=== PATIENT | female | born 1965 | race Caucasian/White ===

== ENCOUNTER → 2024-02-13 15:08 | Outpatient (REF) | payer OTHER, SELFPAY | LOC: HWRAD 15:08 | PROVIDERS: ATTENDING PHYSICIAN Student in an Organized Health Care Education/Training Program; FAMILY PHYSICIAN Internal Medicine | DX: M25.562 Pain in left knee (principal) | CPT/HCPCS: 73700 ==

== ENCOUNTER → 2024-04-28 11:35 | Outpatient (REF) | payer OTHER, SELFPAY | LOC: HWRAD 11:35 | PROVIDERS: ATTENDING PHYSICIAN Obstetrics & Gynecology; FAMILY PHYSICIAN Internal Medicine | DX: E28.39 Other primary ovarian failure (principal) | CPT/HCPCS: 77080 ==

== ENCOUNTER → 2024-06-15 15:51 | Outpatient (REF) | payer OTHER, SELFPAY | LOC: HWWDC 15:51 | PROVIDERS: ATTENDING PHYSICIAN Obstetrics & Gynecology Gynecology; FAMILY PHYSICIAN Internal Medicine | DX: Z12.31 Encounter for screening mammogram for malignant neoplasm of breast (principal) | CPT/HCPCS: 77063; 77067 ==

== ENCOUNTER 2024-08-22 10:12 | Emergency (ER) | payer OTHER, SELFPAY ==
[2024-08-22 10:17] VITALS: BP 123/86
--- NOTE | 2024-08-22 10:52 | ED.GENMED ---
History of Present Illness
General
Chief Complaint: Weakness
Source: patient
Exam Limitations: none
Time Seen by Provider: 08/22/24 10:35
Nursing documentation reviewed up to this point in time: agreed with
History of Present Illness
History of Present Illness:
59-year-old female with a past medical history of CHF, pacemaker in place, diabetes, asthma who presents emergency department today with concerns of shortness of breath for the past 2 weeks. Patient also notes generalized weakness. Patient states
that she noted a lot of shortness of breath with ambulating and went to see her seniour insight manager Dr. Amaya who did pacemaker eval and they noted that it showed that her fluid balance was off. She then saw her seniour insight manager 5 days ago and her lasix was
increased to 40 mg BID. She feels like this has not helped her symptoms. She also notes some pain in her right shoulder that started today, patient states that she sleeps on her right side and believes this to be the cause of her symptoms. Patient
also reports right sided sternal pain but she states that she always has this. Patient denies any fevers or chills, abdominal pain, diarrhea or constipation, nausea or vomiting, cough or flulike symptoms. Patient states that Dr. Amaya scheduled
her for an ECHO in August. She denies swelling in her legs. She feels like her face and abdomen have been increasingly puffy recently. She denies any recent long distance travel, recent surgeries, recent hospitalizations. She does not take a blood
thinner.
Past History
Past History
ED Past Medical History: GERD, HTN, IDDM, NIDDM and Other (cardiomyopathy 2011, EF 45% in 2015); Negative Asthma or CAD
ED Past Surgical History: Cholecystectomy and
Patient has exhibited threatening behavior?: No
Social History
Tobacco: Non-smoker
Alcohol: None
Drug: None
Personal:
Living: with family
Employment: Employed ([employer])
Family History
Family History: Other (CVA aunt age 80)
Review of Systems
Review of Systems
All Other Systems: ROS reviewed and negative except as documented in HPI and ROS
Phy Exam
Physical Exam
Physical Exam:
General: Patient is well appearing and in no acute distress; non-toxic
Skin: Warm and dry, no rashes or lesions
Head: Normocephalic, atraumatic
Eyes: Sclera non-icteric. EOMs intact.
Cardiac: Regular rate and rhythm, no murmurs
Peripheral Vascular: No lower extremity swelling or edema
Pulm: Normal respiratory effort, no wheezes, rales, or rhonchi
Abdomen: No abdominal tenderness to palpation
Neuro: CN II-XII intact, no focal neurologic deficits.
Psychiatric: Appropriate mood and affect.
Course
Orders/Labs/Results
Orders:
Orders
08/22/24 10:19
EKG [Electrocardiogram (*1)] Urgent
Reason for Study: Shortness of Breath
EKG- Treatment ONCE
08/22/24 11:19
IV Insert/Care/Rem.- Treatment PRN
pacemaker [Interrogate Pacemaker- Treatment] ONCE
CR Chest - 2 Views Urgent
Comment:
Reason For Exam: shortness of breath, right scapular pain
08/22/24 11:42
Complete Blood Count/With Diff Urgent
Comprehensive Metabolic Panel Urgent
NT-proBNP Urgent
Troponin I Urgent
08/22/24 11:44
COVID-19 Antigen Urgent
Source: Nasal Swab
Influenza A+B Rapid Molecular Urgent
SAMANTHA Source: Nasal Swab
Specimen Description:
08/22/24 12:43
CT Chest PE Study Urgent
Comment:
Reason For Exam: shortness of breath, chest pain
08/22/24 13:05
Acetaminophen [Tylenol] 1,000 mg PO NOW STA
08/22/24 14:40
EKG- Treatment ONCE
08/22/24 14:44
Troponin I Urgent
Abnormal Lab Results
08/22/24
11:42
RBC 3.90 L 10^6/uL
(4.20-5.40)
Hct 36.9 L %
(37.0-47.0)
MCHC 32.5 L g/dL
(33.0-37.0)
Sodium 131 L mmol/L
(135-145)
Chloride 93 L mmol/L
(98-107)
Carbon Dioxide 31 H mmol/L
(22-30)
BUN 25 H mg/dl
(7-17)
Creatinine 1.2 H mg/dL
(0.6-1.0)
Glucose 202 H mg/dl
(70-99)
Alkaline Phosphatase 144 H U/L
(38-126)
08/22/24 11:42
08/22/24 11:42
Vital Signs
Initial and Last Documented VS:
Initial Vital Signs
Temp Pulse Resp BP Pulse Ox
98.5 F 87 18 123/86 99
08/22/24 10:17 08/22/24 10:17 08/22/24 10:17 08/22/24 10:17 08/22/24 10:17
Last Documented Vital Signs
Temp Pulse Resp BP Pulse Ox
98.5 F 74 18 115/85 95
08/22/24 10:17 08/22/24 15:00 08/22/24 13:45 08/22/24 13:00 08/22/24 17:22
MDM/Problems Addressed
Differential Diagnosis Includes:
CHF, PE, ACS, influenza, COVID-19
MDM/Problems Addressed:
59-year-old female with past medical history of CHF, asthma presents emergency department today with concerns of shortness of breath and chest pain. Symptoms been going on for the past 2 weeks. She saw her seniour insight manager who increased her Lasix.
She reports that this did not help with her symptoms. On physical exam she is well-appearing in no acute distress she is not hypoxic she is not febrile. Her lungs are clear and she had a normal chest x-ray. Because of these normal findings, this
prompted me to get a CAT scan of the chest rule out pulmonary embolism. No evidence of PE or pleural effusion on CT. EKG nonischemic. Troponin x 2 undetectable. Unclear etiology the patient's symptoms at this time, patient has seen pulmonology
in the past. Recommended following up with her instructional designer I also sent a message to seniour insight manager on-call from [facility] and they will forward her information to the office try to get sooner follow-up appointment. Patient stable for discharge.
Chronic conditions affecting care:
CHF, GERD, diabetes
*Radiology
Radiology exam reviewed: radiology read reviewed
*Pulse Oximetry
Patient hypoxic: no
*EKG
Interpreted by ED Provider?: Yes
EKG Intrepretation Date: 08/22/24
Interpretation: normal
Comparison EKG: no changes
Heart Rate: 84
Rate: normal
Rhythm: sinus
[place]: normal axis
*Critical Care Note
Total Time (30-74mins, 75-104mins- exclusive of procedures): Not Applicable
Data Reviewed
Review of Other/Old Records Reveals: Records (Reviewed ER physician documentation from 10/09/2022 patient seen for lacerations)
Patient Management
Discussion with other providers: Investment Strategist (cardiology)
Escalation/DeEscalation of care consider admission/obs:
reviewed case with my attending, patient stable for discharge
ED Attending Note
-
Portions of this chart may have been created with voice recognition software.� Occasional wrong word or��sound alike� substitutions may have occurred due to the inherent limitations of voice recognition software.
Discharge Plan
Departure
Patient Disposition: Home (Routine Discharge)
Date of Disposition: 08/22/24
Time of Disposition: 16:39
Patient with high blood pressure during this ER visit?: Yes
Condition: Good
Discharge Problem:
Shortness of breath
Instructions: Shortness of breath, Generalized Weakness (DC), BLOOD PRESSURE
Prescriptions:
No Action
multivitamin [Daily Vitamin] 1 EACH tablet
1 ea PO Daily
carvedilol [Coreg] 25 MG tablet
25 mg PO BID
aspirin [Aspir-Low] 81 MG tablet,delayed release (DR/EC)
81 mg PO Daily
spironolactone 12.5 MG tablet
25 mg PO Daily
(DME) insulin U-500 syringe-needle [BD Insulin Syringe U-500] 1 EACH syringe
100 - 140 units SC MEALS
Patient Comments:
sliding scale between 100-140/TID w/meals
gabapentin 100 MG capsule
300 mg PO BID
alprazolam 0.5 MG tablet
0.5 mg PO DAILYPRN PRN (Reason: anxiety)
atorvastatin 10 MG tablet
10 mg PO QPM
paroxetine HCl 30 MG tablet
30 mg PO QPM
cholecalciferol (vitamin D3) 2,000 UNIT tablet
2,000 unit PO SA
doxycycline hyclate 100 mg capsule
100 mg PO BID 7 Days Qty: 14 0RF
doxycycline monohydrate 100 mg capsule
100 mg PO BID Qty: 10 1RF
ibuprofen 600 mg tablet
600 mg PO QID PRN (Reason: pain) Qty: 20 0RF
Referrals:
Tere Mishra DO [Family Provider] -
Activity Restrictions/Additional Instructions:
Please call your primary care provider in one week to have your blood work repeated.
Please call your seniour insight manager and your instructional designer to schedule appointment for follow-up.
PLEASE RETURN EMERGENCY DEPARTMENT SHOULD YOU DEVELOP ACUTE WORSENING OF YOUR SYMPTOMS, FAINTING SPELLS, DIZZINESS, LIGHTHEADEDNESS, WEAKNESS IN ONE-SIDED BODY VERSUS OTHER, OR ANY OTHER SIGNS OR SYMPTOMS WORRISOME TO YOU.
Interventions
Interventions:
*Risk Screen - Suicide Last Done: 08/22/24 10:17
*General Assessment Last Done: 08/22/24 10:17
*Neglect/Abuse Screening Last Done: 08/22/24 10:17
*ED COVID-19 Vaccine History Last Done: 08/22/24 10:17
*Nursing Disposition Last Done: 08/22/24 17:28
ED- Cardiac Assessment Last Done: 08/22/24 15:00
ED- Neurological Assessment Last Done: 08/22/24 15:00
ED- Pulmonary Assessment Last Done: 08/22/24 17:22
Discharge Date and Time
Discharge Date/Time: 08/22/24 17:29
Print Language: BARBADIAN
[2024-08-22 11:54] VITALS: BMI 39.8
[2024-08-22 11:54] LABS: % Basophils 0.4 % (0-2); % Eosinophils 2.1 % (0-6); % Immature Granulocytes 0.3 % (0-0.5); % Lymphocytes 28.8 % (20.5-51.1); % Monocytes 5.9 % (1.7-9.3); % Neutrophils 62.5 % (42.2-75.2); Absolute Eosinophils 0.2 10^3/uL (0-0.7); Absolute Lymphocytes 2.6 10^3/uL (1.2-3.4); Absolute Monocytes 0.5 10^3/uL (0.1-0.6); Absolute Neutrophils 5.7 10^3/uL (1.4-6.5); Hematocrit 36.9 % (37.0-47.0); Mean Corp Hgb Conc. 32.5 g/dL (33.0-37.0); Mean Corpuscular Hgb 30.8 pg (27.0-31.0); Mean Corpuscular Volume 94.6 fL (81.0-99.0); Mean Platelet Volume 9.5 fL (7.4-10.4); Nucleated Red Blood Cells % 0 %; Platelet Count 274 10^3/uL (130-400); Red Cell Dist. Width 13.3 % (11.5-14.5); White Blood Cell Count 9.1 10^3/uL (4.8-10.8)
[2024-08-22 12:11] LABS: COVID-19 Antigen Negative (Negative)
[2024-08-22 12:11] LABS: ALT (SGPT) 26 U/L (0-35); AST (SGOT) 27 U/L (14-36); Albumin 3.7 g/dl (3.5-5.0); Alkaline Phosphatase 144 U/L (38-126); Blood Urea Nitrogen 25 mg/dl (7-17); Calcium 9.2 mg/dl (8.4-10.2); Carbon Dioxide 31 mmol/L (22-30); Chloride 93 mmol/L (98-107); Estimated Creatinine Clearance 78 ml/min; Glucose 202 mg/dl (70-99); Potassium 4.5 mmol/L (3.5-5.1); Sodium 131 mmol/L (135-145); Total Protein 7.6 g/dl (6.3-8.2); eGFR 52.47
[2024-08-22 12:21] LABS: NT-proBNP 124 pg/ml; Troponin I < 0.012 ng/ml
[2024-08-22 13:00] VITALS: BP 115/85
[2024-08-22] MEDS: TYLENOL 1000 MG PO (13:25)
[2024-08-22 15:25] LABS: Troponin I < 0.012 ng/ml
== END 2024-08-22 17:29 | disposition home or self-care (01) ==
LOC: EMR 10:12
PROVIDERS: Physician Assistant; EMERGENCY PHYSICIAN Emergency Medicine; FAMILY PHYSICIAN Internal Medicine
DX: R06.02 Shortness of breath (principal); I11.0 Hypertensive heart disease with heart failure; I50.9 Heart failure, unspecified; E11.9 Type 2 diabetes mellitus without complications; J45.909 Unspecified asthma, uncomplicated; K21.9 Gastro-esophageal reflux disease without esophagitis; Z82.3 Family history of stroke; Z90.49 Acquired absence of other specified parts of digestive tract; Z95.810 Presence of automatic (implantable) cardiac defibrillator
CPT/HCPCS: 99284; 71046; 71275; 80053; 83880; 84484; 85025; 87502; 87811; 93005; Q9967

== ENCOUNTER → 2024-08-26 10:13 | Outpatient (REF) | payer OTHER, SELFPAY | LOC: RCS 10:13 | PROVIDERS: ATTENDING PHYSICIAN Internal Medicine Cardiovascular Disease; FAMILY PHYSICIAN Internal Medicine | DX: I42.9 Cardiomyopathy, unspecified (principal) | CPT/HCPCS: 93306; Q9950 ==

== ENCOUNTER → 2024-08-29 09:36 | Outpatient (REF) | payer OTHER, SELFPAY ==
[2024-08-29 11:10] LABS: NT-proBNP 116 pg/ml
[2024-08-29 11:14] LABS: Albumin 3.7 g/dl (3.5-5.0); Blood Urea Nitrogen 22 mg/dl (7-17); Calcium 9.5 mg/dl (8.4-10.2); Carbon Dioxide 28 mmol/L (22-30); Chloride 95 mmol/L (98-107); Glucose 248 mg/dl (70-99); HDL Cholesterol 30 mg/dl; LDL Cholesterol, Calculated 18 mg/dl; Magnesium 1.6 mg/dl (1.6-2.3); Phosphorus 4.5 mg/dl (2.5-4.5); Potassium 4.4 mmol/L (3.5-5.1); Sodium 133 mmol/L (135-145); Total Cholesterol 85 mg/dl (50-199); Triglyceride 185 mg/dl (10-149); Very Low Density Lipoprotein 37 mg/dl (0-30); eGFR > 60.00
[2024-08-29 11:41] LABS: TSH 6.79 uIU/ml (0.47-4.68)
== END ==
LOC: REG 09:36
PROVIDERS: ATTENDING PHYSICIAN Internal Medicine Cardiovascular Disease; FAMILY PHYSICIAN Internal Medicine; REFERRING PHYSICIAN Nurse Practitioner
DX: R06.02 Shortness of breath (principal); I42.9 Cardiomyopathy, unspecified; I49.3 Ventricular premature depolarization
CPT/HCPCS: 36415; 80061; 80069; 83735; 83880; 84443

== ENCOUNTER → 2024-09-07 11:53 | Outpatient (REF) | payer OTHER, SELFPAY | LOC: HWRCS 11:53 | PROVIDERS: ATTENDING PHYSICIAN Nurse Practitioner; FAMILY PHYSICIAN Internal Medicine | DX: I42.9 Cardiomyopathy, unspecified (principal); I49.3 Ventricular premature depolarization | CPT/HCPCS: 78452; 93017; A9500; J2785 ==

== ENCOUNTER 2024-10-16 06:34 | Day surgery (SDC) | payer OTHER, SELFPAY ==
[2024-10-16] VITALS (17 sets, daily range): BP systolic 58–141; BP diastolic 32–90; BMI 41.1
[2024-10-16 07:35] LABS: Hematocrit 34.4 % (37.0-47.0); Hemoglobin 11.2 g/dL (12.0-16.0); Mean Corp Hgb Conc. 32.6 g/dL (33.0-37.0); Mean Corpuscular Hgb 30.7 pg (27.0-31.0); Mean Corpuscular Volume 94.2 fL (81.0-99.0); Mean Platelet Volume 9.7 fL (7.4-10.4); Platelet Count 271 10^3/uL (130-400); Red Blood Cell Count 3.65 10^6/uL (4.20-5.40); Red Cell Dist. Width 14.1 % (11.5-14.5); White Blood Cell Count 9.7 10^3/uL (4.8-10.8)
[2024-10-16] MEDS: LOW STRENGTH ASPIRIN 81 MG PO (07:45)
[2024-10-16] MEDS: NSS 1000 IV (07:50)
[2024-10-16 08:05] LABS: Glucose - Point of Care 225 mg/dl (70-99)
[2024-10-16 10:08] LABS: Glucose - Point of Care 231 mg/dl (70-99)
--- NOTE | 2024-10-16 11:19 | ITS.CL.CATH ---
Publicity Expert - Catheterization
Cardiac Catheterization
Procedure Report:
RIGHT AND LEFT HEART STUDY
Date of Procedure: October 16, 2024
Referring: Dr. Georges Amaya
PROCEDURES:
1. Right heart catheterization
2. Left heart catheterization with coronary and single-plane left ventriculography
INDICATION: Cardiomyopathy and shortness of breath
ACCESS: Right radial artery, 6 [place] sheath in right brachial vein, 6 [place] sheath
HEMODYNAMICS : mmHg
RA (m) : 18
RV (s/d) : 39/17, 20
PA (s/d, m) : 39/27, 31
PCWP (m) : 25
AO (s/d, m) : 117/76, 89
LV (s/d) : 123/22
LVEDP : 33
Estimated [place] Cardiac Output: 4.9 L / min and Cardiac Index: 2.0 L/ min / m-2
Systemic vascular resistance: 14.5 Wood units or 1159 [id number](-5)
Pulmonary vascular resistance: 1.2 to Wood units or 98 [id number](-5)
CORONARY FINDINGS :
Dominance: Right
LEFT MAIN: Normal
LEFT ANTERIOR DESCENDING: The LAD arises normally from the left main and runs in the anterior interventricular groove supplying a single sizable diagonal branch. The LAD and diagonal are widely patent.
CIRCUMFLEX: The circumflex gives rise to a proximal OM1 and trifurcates distally as a terminal branch and the vessel
RIGHT CORONARY ARTERY: The right coronary artery is a large-caliber dominant vessel that is widely patent over its course. The PDA is large.
VENTRICULOGRAPHY: Left ventriculography is performed in [place] projection. The digital single-plane left ventricular ejection fraction is visually estimated at 40% with +1 mitral regurgitation
SEDATION: 57 minutes of procedural sedation was utilized. An independent medical lab director was present to assist with and help manage the patient's level of consciousness and physiologic status
RADIATION SUMMARY: Fluoro Time (min): 9.1, Dose (mGy): 768, DAP (Gy.cm2) : 72.7
CONCLUSIONS
1. Nonobstructive coronary disease
2. Mildly elevated right and left ventricular filling pressures
RECOMMENDATIONS
1. Will increase furosemide from 40 mg daily to 40 mg p.o. twice daily
Copy to: Dr. Georges Amaya
--- NOTE | 2024-10-16 11:28 | PTCARENOTE ---
Iraida REGALADO was in to speak with patient and patients regarding change in medication, as well upcoming bloodwork
== END 2024-10-16 12:36 | disposition home or self-care (01) ==
LOC: CATH 06:34
PROVIDERS: ATTENDING PHYSICIAN Internal Medicine Interventional Cardiology; FAMILY PHYSICIAN Internal Medicine; OTHER PHYSICIAN Internal Medicine Cardiovascular Disease
DX: I25.10 Atherosclerotic heart disease of native coronary artery without angina pectoris (principal); I42.9 Cardiomyopathy, unspecified; R06.02 Shortness of breath; Z79.4 Long term (current) use of insulin; Z79.899 Other long term (current) drug therapy
CPT/HCPCS: 99152; 99153; 82962; 85027; 93005; 93460; C1769; C1894; Q9967

== ENCOUNTER → 2024-11-26 14:25 | Outpatient (REF) | payer OTHER, SELFPAY | LOC: DHSLP 14:25 | PROVIDERS: ATTENDING PHYSICIAN Internal Medicine Critical Care Medicine; FAMILY PHYSICIAN Internal Medicine | DX: G47.33 Obstructive sleep apnea (adult) (pediatric) (principal); R09.02 Hypoxemia | CPT/HCPCS: 95800 ==

== ENCOUNTER → 2024-12-16 12:41 | Outpatient (REF) | payer OTHER, SELFPAY | LOC: RCS 12:41 | PROVIDERS: ATTENDING PHYSICIAN Internal Medicine Cardiovascular Disease; FAMILY PHYSICIAN Internal Medicine | DX: I42.9 Cardiomyopathy, unspecified (principal); I25.10 Atherosclerotic heart disease of native coronary artery without angina pectoris | CPT/HCPCS: 93307; Q9957 ==

== ENCOUNTER → 2024-12-25 13:56 | Outpatient (REF) | payer OTHER, SELFPAY | LOC: HWRAD 13:56 | PROVIDERS: ATTENDING PHYSICIAN Internal Medicine | DX: R22.9 Localized swelling, mass and lump, unspecified (principal) | CPT/HCPCS: 76882 ==

== ENCOUNTER → 2025-06-16 11:56 | Outpatient (REF) | payer OTHER, SELFPAY | LOC: HWWDC 11:56 | PROVIDERS: ATTENDING PHYSICIAN Internal Medicine; REFERRING PHYSICIAN Obstetrics & Gynecology Gynecology | DX: Z12.31 Encounter for screening mammogram for malignant neoplasm of breast (principal) | CPT/HCPCS: 77063; 77067 ==